=== PATIENT | male | born 2000 | race Caucasian/White ===

== ENCOUNTER 2023-06-20 06:55 | Outpatient (CLI) | payer BC, SELFPAY ==
--- NOTE | 2023-06-20 07:15 | US_ITS ---
WS: [id number] Complete ABDOMINAL ULTRASOUND HISTORY: R19.02 - Left upper quadrant abdominal swelling, mass and... COMPARISON: None available. Liver: 15.3 cm in length. Normal size liver and echogenicity. No bile duct dilatation or mass. Portal Vein: Normal hepatopetal flow with monophasic waveform. Gallbladder: Normally distended gallbladder with no stones or wall thickening. CBD: 0.5 cm Pancreas: Normal size and echogenicity. Right kidney: 12.3 cm x 6.4 x 5.2 cm. Cortex: 2.0 cm. Normal size and echogenicity. No hydronephrosis or mass. Left kidney: 12.8 cm x 6.6 cm x 6.7 cm. Cortex: 2.0 cm. Normal size and echogenicity. No hydronephrosis or mass. Spleen: 12.4 cm; normal. Aorta and IVC: Unremarkable abdominal aorta and IVC. Ultrasound is directed to the LEFT lower quadrant at the palpable site. There is a very small nearly isoechoic nodule measuring 8 x 14 mm. No increased vascularity. This is probably a small lipoma. Impression: Normal complete abdomen ultrasound. Palpable area in the LEFT lower quadrant corresponds to superficial nodule measuring 8 x 14 mm which is probably a lipoma.
== END 2023-06-20 06:56 | disposition home or self-care (01) ==
LOC: RAD 06:56
PROVIDERS: Family Provider Nurse Practitioner Family; PCP Nurse Practitioner Family; Visit Provider Nurse Practitioner
DX: R19.02 Left upper quadrant abdominal swelling, mass and lump (principal)
CPT/HCPCS: 76700

== ENCOUNTER → 2023-10-28 10:23 | Outpatient (BNVA) | payer BC, SELFPAY | PROVIDERS: Family Provider Nurse Practitioner Family; PCP Nurse Practitioner Family; Visit Provider Nurse Practitioner | DX: J02.9 Acute pharyngitis, unspecified (principal) | CPT/HCPCS: 87880 ==